=== PATIENT | male | born 1990 | race African-American/Black ===

== ENCOUNTER 2018-08-15 23:21 | Emergency (ER) | payer OTHER ==
[~2018-08-15] VITALS: Ht 172.7 cm; Wt 110.2 kg
[2018-08-15] MEDS ORDERED: CLONAZEPAM1 MG (23:36)
[2018-08-15] MEDS ORDERED: [UNRECOGNIZED DRUG - REMARK] (23:38)
[2018-08-16] MEDS ORDERED: ONDANSETRON ODT4 MG PO (03:42)
[2018-08-16] MEDS ORDERED: PEPCID AC20 MG PO (03:42)
== END 2018-08-16 03:57 | disposition home or self-care (01) ==
LOC: ER 23:21
DX: K52.9 Noninfective gastroenteritis and colitis, unspecified (principal)